=== PATIENT | female | born 1950 | race Caucasian/White ===

== ENCOUNTER 2017-09-12 02:54 | Emergency (ER) | payer MEDICARE, OTHER ==
[2017-09-12] MEDS ORDERED: HYDROCODONE/APAP 7.5/325MG TABLET PO ONE (03:03)
--- NOTE | 2017-09-12 03:10 | Emergency Department Record ---
History of Present Illness - General Chief Complaint: Ankle/Foot Injury Stated Complaint: LEFT ANKLE INJURY Source: Patient Mode of Arrival: Ambulatory Limitations: No limitations - History of Present Illness Initial Comments: 67 yo female presents with left ankle pain. She states she rolled over in bed and felt a sharp pain in the left ankle. She did not fall or directly hit the ankle. The pain occurred as she turned causing the ankle to turn. She denies any prior injury. She hurts over the medial and lateral ankle. NO coolness, numbness, or changes in color. She has some pain over the achilles but no deformity. PCP is Mckenzie. Ortho [facility] replaced her right hip 10 years ago. No history of PVD,PAD,DVT. MD Complaint: Ankle injury -: Hour(s) (3) Injury: Ankle: Left Type of Injury: Other Place: Home Severity: Moderate Improves With: Immobilization, Rest Worsens With: Movement, Palpation Context: Other (rolling over in bed) Associated Symptoms: Able to partially bear weight Treatments Prior to Arrival: NSAIDS - Related Data Previous Rx's Medication Instructions Recorded Hydrocodone/APAP 5/325Mg [B[place]keye 1 each PO Q6H #12 tab 09/12/17 5Mg/325Mg] Allergies Allergy/AdvReac Type Severity Reaction Status Date / Time cephalexin [From Keflex] Allergy HIVES Verified 09/12/17 03:03 Review of Systems Constitutional: Denies: Chills, Fever, Malaise, Weakness Eyes: Denies: Eye discharge, Eye pain, Photophobia, Vision change ENT: Denies: Congestion, Throat pain Respiratory: Denies: Cough Cardiovascular: Denies: Chest pain, Palpitations, Syncope Endocrine: Denies: Fatigue, Heat or cold intolerance Gastrointestinal: Denies: Abdominal pain, Diarrhea, Nausea, Vomiting Genitourinary: Denies: Dysuria, Urgency Musculoskeletal: Reports: As per HPI, Arthralgia, Myalgia. Denies: Joint swelling Skin: Denies: Bruising, Change in color, Rash Neurological: Denies: Headache, Numbness, Weakness Psychiatric: Denies: Anxiety Hematological/Lymphatic: Denies: Easy bleeding, Easy bruising Physical Exam - General General Appearance: Alert, Oriented x3, Cooperative, No acute distress Limitations: No limitations - Head Head exam: Atraumatic, Normal inspection - Eye Eye exam: Normal appearance. negative: Conjunctival injection, Scleral icterus - ENT ENT exam: Normal exam Ear exam: Normal external inspection Nasal Exam: Normal inspection Mouth exam: Normal external inspection - Neck Neck exam: Normal inspection - Cardiovascular Cardiovascular Exam: Regular rate, Normal rhythm, Normal heart sounds Peripheral Pulses: 2+: Dorsalis Pedis (L) (Brisk Cap refill, sensation intact, toe warm no pallor) - GI/Abdominal GI/Abdominal exam: Soft. negative: Tenderness - Rectal Rectal exam: Deferred - exam: Deferred - Extremities Extremities exam: Normal inspection, Normal capillary refill, Tenderness. negative: Full ROM (limited due to pain), Joint swelling Image of Feet: 1 - medial and lateral malleolar tenderness, no swelling, no abnormal coolness or warmth, strong DP pulse, brisk CR, full ROM but limited due to pain. Pain with dorsiflexion of the foot 2 - achilles is palpably intact but mild tenderness - Back Back exam: Reports: Normal inspection - Neurological Neurological exam: Alert, Oriented X3 - Psychiatric Psychiatric exam: Normal affect, Normal mood - Skin Skin exam: Dry, Intact, Normal color, Warm Course - Reevaluation(s) Reevaluation #1: 09/12/17 03:12 XR ordered of the left ankle She is tender medial and lateral ankle posterior near the achilles, achilles is intact without deformity or defect She is neurovascular intact with intact sensation, pulses, and movement She has the most pain with foot dorsiflexion. 09/12/17 03:43 XR was read No definite fracture or dislocation. Degenerative changes noted I discussed that this could a a partial injury to the achilles tendon She will be immobilized. She has an orthopedic physician to call for followup Disposition Disposition: Discharge Clinical Impression: Ankle pain, left, Achilles tendon injury Disposition: Home, Self-Care Condition: (1) Good Instructions: Ankle Sprain (ED), Achilles Tendon Rupture (ED) Additional Instructions: Minimize your weight bearing as much as possible on the left Call your orthopedic doctor for very close follow up and recheck of the pain of the ankle and achilles tendon Use your crutches or walker at all time to avoid placing weight on the painful left ankle Prescriptions: Hydrocodone/APAP 5/325Mg [B[place]keye 5Mg/325Mg] 1 each PO Q6H #12 tab Time of Disposition: 03:47 Quality - Quality Measures Quality Measures: N/A - Blood Pressure Screening Does Patient Have Any of the Following: No Systolic Measurement: ~ Screening for High Blood Pressure: < Pre-Hypertensive BP, F/U Documented > [ [id number]] Pre-Hypertensive Follow-up Interventions: Referral to alternative/primary care provider.
--- NOTE | 2017-09-13 21:30 | RADIOLOGY REPORT ---
EXAM: ANKLE LEFT 3 VIEWS HISTORY: MEDIAL AND LATERAL LEFT ANKLE PAIN. NO KNOWN INJURY. SMALL CONTUSION ABOVE THE MEDIAL MALLEOLUS. LIMITED RANGE OF MOTION. TECHNIQUE: AP, lateral, and oblique views of the left ankle were obtained. COMPARISON: None. FINDINGS: The bones appear intact. There is no visible acute fracture or dislocation. Small marginal osteophytes are present at the ankle joint. A chronic calcific density is present inferior to the lateral malleolus. Mild arthritic changes are present within the midfoot. There are small plantar and posterior calcaneal spurs. There is mild medial soft tissue swelling. IMPRESSION: 1. NO ACUTE FRACTURE IDENTIFIED. 2. MILD MEDIAL SOFT TISSUE SWELLING. 3. ARTHRITIC CHANGES ABOVE. JOB NUMBER: [id number] [facility]
== END 2017-09-12 04:10 | disposition home or self-care (01) ==
LOC: ER 02:54
DX: S86.002A Unspecified injury of left Achilles tendon, initial encounter (principal); X50.0XXA Overexertion from strenuous movement or load, initial encounter; Y92.003 Bedroom of unspecified non-institutional (private) residence as the place of occurrence of the external cause
CPT/HCPCS: 99283